=== PATIENT | male | born 1990 | race Caucasian/White ===

== ENCOUNTER 2016-10-01 13:46 | Emergency (ER) | payer OTHER ==
[2016-10-01 13:50] VITALS: BP 137/82
--- NOTE | 2016-10-01 14:31 | EDM.PDOC ---
ED HPI GENERAL MEDICAL PROBLEM - General Chief Complaint: General Stated Complaint: Laceration Time Seen by Provider: 10/01/16 14:00 Source of Information: Reports: Patient History Limitations: Reports: No Limitations - History of Present Illness INITIAL COMMENTS - FREE TEXT/NARRATIVE: Patient sustained laceration to dorsal aspect of right hand while moving stove. No loss of function or numbness. Tetanus UTD. No other injury. Bleeding well controlled prior to arrival. - Related Data Allergies Allergy/AdvReac Type Severity Reaction Status Date / Time No Known Allergies Allergy Verified 10/01/16 13:47 Home Meds: Home Meds . [No Known Home Meds] 10/01/16 [History] Past Medical History - Past Health History Medical/Surgical History: Denies Medical/Surgical History Social & Family History - Alcohol Use Alcohol Use History: Yes ED ROS GENERAL - Review of Systems Review Of Systems: ROS reveals no pertinent complaints other than HPI. ED EXAM, GENERAL - Physical Exam Exam: See Below Exam Limited By: No Limitations General Appearance: Alert, WD/WN, No Apparent Distress Eye Exam: Bilateral Eye: EOMI, PERRL Head: Atraumatic, Normocephalic Neck: Supple Respiratory/Chest: No Respiratory Distress Peripheral Pulses: 2+: Radial (L), Radial (R) Extremities: Other (laceration right hand dorsal-medially. Tendon function intact. Neuro intact) Neurological: Alert, Oriented, Normal Cognition, Normal Gait, No Motor/Sensory Deficits Psychiatric: Normal Affect, Normal Mood Skin Exam: Warm, Dry, Other (laceration) ED GENERAL MEDICAL PROCEDURES - Laceration/Wound Repair Right Medial Dorsal Hand Lac/wound length in cm: 2 Appearance: Subcutaneous, Linear, Clean Distal NVT: Neuro & Vascular Intact, No Tendon Injury Skin Prep: Providone-Iodine (Betadine) Exploration/Debridement/Repair: Wound Explored, In a Bloodless Field, Explored to Base Closed with: Wound Adhesive Sterile Dressing Applied: Nurse Tetanus Status Addressed: Yes Complications: No Progress/Comments: Steri strips applied over glue Course - Vital Signs Last Recorded V/S: Last Vital Signs Temp 36.3 C 10/01/16 13:49 Pulse 97 10/01/16 13:49 Resp 16 10/01/16 13:49 BP 137/82 10/01/16 13:49 Pulse Ox 98 10/01/16 13:49 - Re-Assessments/Exams Free Text/Narrative Re-Assessment/Exam: Laceration repaired. Wound care reviewed. Departure - Departure Time of Disposition: 14:29 Disposition: Home, Self-Care 01 Condition: Good Clinical Impression: Laceration of right hand Qualifiers: Encounter type: initial encounter Foreign body presence: without foreign body Qualified Code(s): S61.411A - Laceration without foreign body of right hand, initial encounter - Discharge Information Instructions: Tissue Adhesive Wound Care, [id number] Referrals: Sherman Dong [facility]DER [Primary Care Provider] - Forms: ED Department Discharge Additional Instructions: Keep area clean and dry for 4 days. Avoid bumping area. Follow up if you have any problems or signs of infection
== END 2016-10-01 14:30 | disposition home or self-care (01) ==
LOC: LL.ED 13:46
DX: S61.411A Laceration without foreign body of right hand, initial encounter (principal); W26.9XXA Contact with unspecified sharp object(s), initial encounter; Z23 Encounter for immunization
CPT/HCPCS: 12001; 99283